=== PATIENT | female | born 1975 | race Caucasian/White ===

== ENCOUNTER 2017-05-23 17:51 | Emergency (ER) | payer BC ==
[2017-05-23 18:06] VITALS: BP 137/85
[2017-05-23] MEDS ORDERED: Dexamethasone 4 MG Tab PO ONE (18:49)
[2017-05-23] MEDS ORDERED: Amoxicillin 500 MG Cap PO ONE (18:49)
--- NOTE | 2017-05-23 19:06 | EDM.PDOC ---
ED HPI GENERAL MEDICAL PROBLEM - General Chief Complaint: ENT Problem Stated Complaint: SORE THROAT/BODY ACHES Time Seen by Provider: 05/23/17 18:33 Source of Information: Reports: Patient History Limitations: Reports: No Limitations - History of Present Illness INITIAL COMMENTS - FREE TEXT/NARRATIVE: 42-year-old female with chief complaint of sore throat. She's been ill for about a day. She has severe throat pain, worse with swallowing. No documented fever but she has shaking chills. No rhinorrhea. No cough. No chest pain. No nausea or vomiting. No rash. No ill contacts. 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 Faizan disease Hematologic History: Reports: Anemia Social & Family History - Family History Family Medical History: Noncontributory - Tobacco Use Smoking Status *Q: Current Every Day Smoker Years of Tobacco use: 10 Packs/Tins Daily: 0.5 Used Tobacco, but Quit: No Second Hand Smoke Exposure: No - Caffeine Use Caffeine Use: Reports: Soda - Alcohol Use Days Per Week of Alcohol Use: 0 - Recreational Drug Use Recreational Drug Use: No - Living Situation & Occupation Living situation: Reports: , with Spouse, with Family Occupation: Employed ED ROS ENT - Review of Systems Review Of Systems: See Below Constitutional: Reports: Fever, Chills, Malaise HEENT: Denies: Rhinitis Respiratory: Denies: Cough Cardiovascular: Denies: Chest Pain GI/Abdominal: Denies: Abdominal Pain Skin: Reports: No Symptoms Neurological: Reports: Headache ED EXAM, ENT - Physical Exam Exam: See Below Exam Limited By: No Limitations General Appearance: Alert, WD/WN, No Apparent Distress Eye Exam: Bilateral Eye: Normal Inspection Ears: Normal External Exam Nose: Normal Inspection, Normal Mucousa, No Blood Mouth/Throat: Pharyngeal Erythema, Tonsillar Erythema, Tonsillar Exudates, Tonsillar Swelling Head: Atraumatic, Normocephalic Neck: Normal Inspection, Supple, Lymphadenopathy (L), Lymphadenopathy (R) Respiratory/Chest: No Respiratory Distress, Lungs Clear, Normal Breath Sounds, No Accessory Muscle Use, Chest Non-Tender Cardiovascular: Normal Peripheral Pulses, Regular Rate, Rhythm, No Murmur GI/Abdominal: Soft, Non-Tender, No Distention. No: Rebound Back: Normal Inspection Extremities: Normal Inspection Neurological: Alert, Oriented, Normal Cognition, No Motor/Sensory Deficits Psychiatric: Normal Affect, Normal Mood Skin: Warm, Dry, Intact, Normal Color, No Rash Course - Vital Signs Last Recorded V/S: Last Vital Signs Temp 36.4 C 05/23/17 18:02 Pulse 104 H 05/23/17 18:02 Resp 17 05/23/17 18:02 BP 137/85 05/23/17 18:02 Pulse Ox 100 05/23/17 18:02 - Orders/Labs/Meds Meds: Medications Discontinued Medications Generic Name Dose Route Start Last Admin Trade Name Freq PRN Reason Stop Dose Admin Amoxicillin 500 mg 05/23/17 18:49 05/23/17 18:59 Amoxil PO 05/23/17 18:50 500 mg ONETIME ONE Administration Dexamethasone 10 mg 05/23/17 18:49 05/23/17 18:59 Dexamethasone PO 05/23/17 18:50 10 mg ONETIME ONE Administration Departure - Departure Time of Disposition: 19:04 Disposition: Home, Self-Care 01 Clinical Impression: Pharyngitis Qualifiers: Pharyngitis/tonsillitis etiology: unspecified etiology Qualified Code(s): J02.9 - Acute pharyngitis, unspecified - Discharge Information Prescriptions: Amoxicillin 500 mg PO TID #30 tab Ibuprofen 600 mg PO QID PRN #30 tablet PRN Reason: Pain Instructions: Pharyngitis, [id number] Referrals: PCP,None [Primary Care Provider] - Forms: ED Department Discharge Additional Instructions: 1. take amoxicillin as prescribed 2. take ibuprofen for pain. You may also take acetaminophen (Tylenol) in addition to ibuprofen, these medications worked in different ways and are cleared by your body in different ways and may provide you with better pain relief together. 3. Follow-up with your primary doctor as needed for further care.
== END 2017-05-23 19:12 | disposition home or self-care (01) ==
LOC: JD.ED 17:51
DX: J02.9 Acute pharyngitis, unspecified (principal); F17.210 Nicotine dependence, cigarettes, uncomplicated
CPT/HCPCS: 87077; 87081; 87430; 99283; A9270; J8540

== ENCOUNTER 2017-10-25 07:13 | Emergency (ER) | payer BC ==
[2017-10-25 07:23] VITALS: BP 130/68
[2017-10-25] MEDS ORDERED: Ibuprofen 600 MG Tab PO ONE (07:27)
[2017-10-25] MEDS ORDERED: Lidocaine 1% 10 ML MDV INJECT ONE (07:28)
[2017-10-25] MEDS ORDERED: Diphtheria,Pertussis(Acell),Tetanus Vaccine 0.5 ML SDV IM ONE (07:35)
--- NOTE | 2017-10-25 07:35 | EDM.PDOC ---
ED HPI GENERAL MEDICAL PROBLEM - General Chief Complaint: Bite:Animal, Insect Stated Complaint: CUT ABOVE UPPER LIP Time Seen by Provider: 10/25/17 07:28 Source of Information: Reports: Patient, Family (spouse) History Limitations: Reports: No Limitations - History of Present Illness INITIAL COMMENTS - FREE TEXT/NARRATIVE: 42-year-old female attends the ED this morning after suffering a jagged laceration to the right side of her face. States her dog jumped up on her bed this morning and unfortunately one of his front part talons punctured her right side of her face just inferior to her naris and lateral to the naris. This resulted in a stellate laceration that is through and through at point. She is not exactly sure when her last tetanus toxoid was. The dog just came in from outside. Injury occurred within the last half hour. She denies any other injuries. Wound is approximately 2 cm in length . 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: Other (see below) (None.) Lip Pain Score (Numeric/FACES): 6 - Related Data Allergies Allergy/AdvReac Type Severity Reaction Status Date / Time No Known Allergies Allergy Verified 10/25/17 07:18 Home Meds: Home Meds Amoxicillin/Clavulanate K [Augmentin 500-125 MG] 1 tab PO BID #10 tab 10/25/17 [ Rx] Past Medical History - Past Health History Medical/Surgical History: Denies Medical/Surgical History HEENT History: Reports: Other (See Below) Other HEENT History: strep infection "long time ago." 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 Faizan disease Hematologic History: Reports: Anemia Social & Family History - Family History Family Medical History: Noncontributory - Tobacco Use Smoking Status *Q: Current Every Day Smoker Years of Tobacco use: 20 Packs/Tins Daily: 0.5 Used Tobacco, but Quit: No Second Hand Smoke Exposure: No - Caffeine Use Caffeine Use: Reports: Soda - Alcohol Use Days Per Week of Alcohol Use: 0 - Recreational Drug Use Recreational Drug Use: No - Living Situation & Occupation Living situation: Reports: , with Spouse, with Family Occupation: Employed ED ROS GENERAL - Review of Systems Review Of Systems: See Below Constitutional: Reports: No Symptoms HEENT: Reports: Other Respiratory: Reports: No Symptoms Cardiovascular: Reports: No Symptoms Endocrine: Reports: No Symptoms GI/Abdominal: Reports: No Symptoms : Reports: No Symptoms Musculoskeletal: Reports: No Symptoms Skin: Reports: Other Neurological: Reports: No Symptoms (Facial laceration as described in history present illness.) Psychiatric: Reports: No Symptoms Hematologic/Lymphatic: Reports: No Symptoms Immunologic: Reports: No Symptoms ED EXAM, ANIMAL BITE - Physical Exam Exam: See Below Exam Limited By: No Limitations General Appearance: Alert, WD/WN, Mild Distress Eye Exam: Bilateral Eye: Normal Inspection Head: Facial Tenderness (Tenderness inferior lateral to the right naris. There is a 2 cm stellate laceration in this area that is through and through into the superior tissues of the face above the gingiva margin. On inspection anteriorly there is a small puncture wound only. This will not need to be repaired.) Neck: Normal Inspection, Supple, Non-Tender, Full Range of Motion Respiratory/Chest: No Respiratory Distress, Lungs Clear, Normal Breath Sounds, No Accessory Muscle Use ED ANIMAL BITE PROCEDURES - Laceration/Wound Repair Right Middle Face Lac/Wound Length In cm: 2.0 Appearance: Subcutaneous, Stellate Distal NVT: Neuro & Vascular Intact Anesthetic Type: Local Local Anesthesia - Lidocaine (Xylocaine): 1% Plain Local Anesthetic Volume: 2cc Skin Prep: Saline Closed With: Sutures Suture Size: other (5-0) # of Sutures: 3 Suture Type: Nylon, Interrupted, Simple Course - Vital Signs Last Recorded V/S: Last Vital Signs Temp 36.6 C 10/25/17 07:19 Pulse 98 10/25/17 07:19 Resp BP 130/68 10/25/17 07:19 Pulse Ox 97 10/25/17 07:19 - Orders/Labs/Meds Orders: Active Orders 24 hr Category Date Time Status Vaccines to be Administered [RC] PER UNIT ROUTINE Care 10/25/17 07:35 Active Meds: Medications Discontinued Medications Generic Name Dose Route Start Last Admin Trade Name Gio PRN Reason Stop Dose Admin Diphtheria/Tetanus/Acell Pertussis 0.5 ml 10/25/17 07:35 10/25/17 08:02 Adacel IM 10/25/17 07:36 0.5 ml .ONCE ONE Administration Ibuprofen 600 mg 10/25/17 07:27 10/25/17 07:32 Motrin PO 10/25/17 07:28 600 mg ONETIME ONE Administration Lidocaine HCl 10 ml 10/25/17 07:28 10/25/17 07:38 Xylocaine 1% INJECT 10/25/17 07:29 10 ml ONETIME ONE Administration - Radiology Interpretation Free Text/Narrative:: 42-year-old female presents to the ED with a stellate facial laceration inferior lateral to her right naris. This occurred when her dog jumped up on her bed this morning and inadvertently struck her in the face with his toenail. And a stellate laceration that is through and through and one small portion. The inside portion will not require suture repair. The laceration on the outer aspect of the face will require suture repair. Lidocaine 1% and 5-0 Ethilon. T gap will be updated since its unclear when her last tetanus toxoid was given. I will give her Motrin 600 mg by mouth for pain relief at this time. She'll be placed on Augmentin 500 mg twice daily for the next 5 days to prevent secondary wound infection. - Re-Assessments/Exams Free Text/Narrative Re-Assessment/Exam: 10/25/17 08:06 wound repaired by PA bandar Jaramillo. 3 sutures were placed. His need to be removed in 6-7 days time. Patient will apply topical antibiotic such as bacitracin or Polysporin to the wound once daily at bedtime after daily cleanse. Placed on Augmentin 500 mg twice a day for the next 5 days to prefer prevent secondary wound infection. T Dap was updated today. Departure - Departure Time of Disposition: 08:04 Disposition: Home, Self-Care 01 Condition: Fair Clinical Impression: Facial laceration Qualifiers: Encounter type: initial encounter Qualified Code(s): S01.81XA - Laceration without foreign body of other part of head, initial encounter - Discharge Information Prescriptions: Amoxicillin/Clavulanate K [Augmentin 500-125 MG] 1 tab PO BID #10 tab Referrals: PCP,Not In Area [Primary Care Provider] - Forms: ED Department Discharge Additional Instructions: Evaluation the emergency room this morning in regards to a stellate jagged laceration to the inferior lateral aspect of your right nose. This resulted from a dog toenail when the dog jumped up on the bed and landed on her face. Wound is 2 cm in length. It was cleansed and then sutured 3 with 5-0 Ethilon suture. Treatment at home is to daily cleanse the wound with soap and water. Showering is okay. Then apply topical antibiotic such as bacitracin or Polysporin to the wound once daily usually at bedtime. Sutures could be removed in 7 days time. Suggest oral antibiotic Augmentin 500 mg twice daily for the next 5 days to prevent secondary wound infection. Tetanus toxoid, diphtheria, and pertussis vaccination was updated today and her good for the next 10 years. Return to medical care if any signs of infection develop such as increasing redness swelling or obvious pus. - My Orders Last 24 Hours: My Active Orders 10/25/17 07:35 Vaccines to be Administered [RC] PER UNIT ROUTINE - Assessment/Plan Last 24 Hours: My Active Orders 10/25/17 07:35 Vaccines to be Administered [RC] PER UNIT ROUTINE
== END 2017-10-25 08:24 | disposition home or self-care (01) ==
LOC: JD.ED 07:13
DX: S01.81XA Laceration without foreign body of other part of head, initial encounter (principal); F17.210 Nicotine dependence, cigarettes, uncomplicated; Z23 Encounter for immunization; W54.8XXA Other contact with dog, initial encounter
CPT/HCPCS: 12011; 90471; 90715; 99284; A9270; 99283

== ENCOUNTER 2018-02-07 20:28 | Emergency (ER) | payer BC ==
[2018-02-07 20:45] VITALS: BP 152/81
[2018-02-07] MEDS ORDERED: Ketorolac 60 MG/2 ML SDV IM ONE (22:10)
[2018-02-07] MEDS ORDERED: Acetaminophen/HYDROcodone 325-5 MG Tab PO ONE (22:10)
[2018-02-07] MEDS ORDERED: Orphenadrine 100 MG Tab.ER PO STA (22:10)
--- NOTE | 2018-02-07 22:18 | EDM.PDOC ---
ED HPI GENERAL MEDICAL PROBLEM - General Chief Complaint: Back Pain or Injury Stated Complaint: LOWER BACK PAIN Time Seen by Provider: 02/07/18 21:50 Source of Information: Reports: Patient History Limitations: Reports: No Limitations - History of Present Illness INITIAL COMMENTS - FREE TEXT/NARRATIVE: 42-year-old female presents for evaluation and treatment of low back pain. Patient reports the back pain is more for the last 2 weeks. She has tried over- the-counter medications including ibuprofen and heat without any relief. Pain is primarily located on the left lower back. Radiates into her buttocks. No numbness or tingling in the leg. No fevers, chills, urinary incontinence or stool incontinence. 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 Patient reports that she had a sim instance about 3 years ago. Associated bulging disc in her resolved on its own. She does not have a primary care provider. 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 Faizan disease Hematologic History: Reports: Anemia Social & Family History - Family History Family Medical History: Noncontributory - Tobacco Use Smoking Status *Q: Current Every Day Smoker Years of Tobacco use: 10 Packs/Tins Daily: 0.5 - Caffeine Use Caffeine Use: Reports: Soda - Recreational Drug Use Recreational Drug Use: No - Living Situation & Occupation Living situation: Reports: , with Spouse, with Family Occupation: Employed ED ROS GENERAL - Review of Systems Review Of Systems: See Below Constitutional: Denies: Fever, Chills GI/Abdominal: Denies: Stool Incontinence : Denies: Incontinence Musculoskeletal: Reports: Back Pain (lower back with radiation into the left buttocks). Denies: Leg Pain Neurological: Denies: Numbness, Tingling ED EXAM,LOWER BACK PAIN/INJURY - Physical Exam Exam: See Below Exam Limited By: No Limitations General Appearance: Alert, WD/WN, Moderate Distress Ears: Normal External Exam Nose: Normal Inspection Throat/Mouth: Normal Inspection, Normal Lips, Normal Voice, No Airway Compromise Neck: Normal Inspection, Full Range of Motion Respiratory/Chest: No Respiratory Distress, Lungs Clear, Normal Breath Sounds Cardiovascular: Normal Peripheral Pulses, Regular Rate, Rhythm, No Murmur Back Exam: Normal Inspection, Other (left SI joint). No: Vertebral Tenderness Neurological: Alert, Normal Mood/Affect, Normal Dorsiflexion, Normal Plantar Flexion. No: Straight Leg Raise (L), Straight Leg Raise (R) Psychiatric: Normal Affect, Normal Mood Skin Exam: Warm, Dry, Normal Color Course - Vital Signs Last Recorded V/S: Last Vital Signs Temp 98.7 F 02/07/18 20:43 Pulse 90 02/07/18 20:43 Resp 18 02/07/18 20:43 BP 152/81 H 02/07/18 20:43 Pulse Ox 95 02/07/18 20:43 - Orders/Labs/Meds Meds: Medications Discontinued Medications Generic Name Dose Route Start Last Admin Trade Name Bartq PRN Reason Stop Dose Admin Hydrocodone Bitart/Acetaminophen 1 tab 02/07/18 22:10 02/07/18 22:23 Sycamore 325-5 Mg PO 02/07/18 22:11 1 tab ONETIME ONE Administration Ketorolac Tromethamine 60 mg 02/07/18 22:10 02/07/18 22:23 Toradol IM 02/07/18 22:11 60 mg ONETIME ONE Administration Orphenadrine Citrate 100 mg 02/07/18 22:10 02/07/18 22:23 Norflex PO 02/07/18 22:11 100 mg NOW STA Administration - Re-Assessments/Exams Free Text/Narrative Re-Assessment/Exam: 02/07/18 22:11 Discussed imaging with the patient. Without any obvious trauma any bony abnormalities is unlikely. Patient is agreeable to this and agrees to forego any imaging. Recommend symptomatic care. If not much better she may require an MRI or physical therapy in the near future. Will prescribe pain medication for a few days and muscle relaxers. Discharge instructions as documented. Departure - Departure Time of Disposition: 22:13 Disposition: Home, Self-Care 01 Condition: Fair Clinical Impression: SI (sacroiliac) joint inflammation, Low back pain - Discharge Information *PRESCRIPTION DRUG MONITORING PROGRAM REVIEWED*: No *COPY OF PRESCRIPTION DRUG MONITORING REPORT IN PATIENT JAIDEN: No Prescriptions: Acetaminophen/HYDROcodone [Sycamore 325-5 MG] 1 tab PO Q6H PRN #15 tablet PRN Reason: Pain Orphenadrine [Norflex] 100 mg PO BID PRN #20 tab.er PRN Reason: Muscle Spasm Instructions: Back Pain, Adult, [id number] Referrals: PCP,None [Primary Care Provider] - Ewa Blanton, HVAC DESIGN ENGINEER [Nurse Practitioner] - Forms: ED Department Discharge Additional Instructions: you were given medication that can affect your ability to drive and operate machinery. Do not drive or operate machinery within 10 hours of taking prescription narcotic medication. Norflex 1 tab twice a day as needed for muscle spasms. Norflex may make you sedated. Do not drive or operate machinery until you know how this medication will affect you. Take [id number] NSAIDs such as Aleve or ibuprofen per package instructions. No more 3200 mg of ibuprofen in 1 day. For pain not relieved by NSAIDs, Sycamore one tablet every 6 hours. Sycamore is habit- forming, take as little as needed to control your pain. Do not drive or operate machinery within 10 hours of taking Sycamore. Follow-up with family medicine if not much better within 1-[address] Verduzco or Ewa Blanton at the [facility]. Call [phone] to schedule with on of these providers. Recommend using ice or heat for additional pain relief. You may also try topical products such as icy hot or BenGay. Please return to the ER if your symptoms change or worsen.
== END 2018-02-07 22:28 | disposition home or self-care (01) ==
LOC: JD.ED 20:28
DX: M46.1 Sacroiliitis, not elsewhere classified (principal); F17.210 Nicotine dependence, cigarettes, uncomplicated
CPT/HCPCS: 96372; 99283; A9270; J1885

== ENCOUNTER 2018-10-17 00:22 | Emergency (ER) | payer BC ==
[2018-10-17 00:30] VITALS: BP 138/86
[2018-10-17] MEDS ORDERED: Ketorolac 10 MG Tab PO ONE (00:40)
[2018-10-17] MEDS ORDERED: Acetaminophen/oxyCODONE 325-5 MG Tab PO ONE (00:40)
--- NOTE | 2018-10-17 00:41 | EDM.PDOC ---
ED HPI GENERAL MEDICAL PROBLEM - General Chief Complaint: ENT Problem Stated Complaint: THROAT PAIN FEVER AND CHILLS Time Seen by Provider: 10/17/18 00:35 Source of Information: Reports: Patient History Limitations: Reports: No Limitations - History of Present Illness INITIAL COMMENTS - FREE TEXT/NARRATIVE: 43-year-old female presents to the ED with a very painful sore throat for the last 24 hours. Associated fever chills. She states it feels like she is swallowing razor blades. Has her tonsils. No one else she knows has a sore throat. Denies any sputum production or nasal congestion. Pain radiates up into the left ear with swallowing. Denies cough or sputum production. Second problem is pain in her left sacroiliac joint. She playing racquetball a week ago and since that time the joint is become very inflamed and making it very difficult to walk. Walking with a definitive limp. Onset: Sudden Onset Date: 10/16/18 Onset Time: 08:00 (Woke up with sore throat yesterday morning and is gradually worsened as the day has gone on.) Duration: Hour(s):, Constant, Getting Worse Location: Reports: Neck, Back (Diffuse throat pain a little worse on the left side as compared to the right.) Quality: Reports: Ache ( Low back pain and buttock pain i.e. distribution of the left sacroiliac joint.), Sharp (SI joint and swallowing at times), Stabbing , Throbbing Severity: Severe (Throat pain is rated as 8 out of 10) Improves with: Reports: None Worsens with: Reports: None Context: Denies: Activity, Exercise, Lifting, Sick Contact, Trauma, Other Associated Symptoms: Reports: Fever/Chills, Malaise. Denies: No Other Symptoms , Confusion, Chest Pain, Cough, cough w sputum, Diaphoresis, Headaches, Loss of Appetite, Nausea/Vomiting, Rash, Seizure, Shortness of Breath, Syncope Treatments RECOVERY COORDINATOR: Reports: NSAIDS Throat Pain Score (Numeric/FACES): 6 - Related Data Allergies Allergy/AdvReac Type Severity Reaction Status Date / Time No Known Allergies Allergy Verified 02/07/18 20:45 Home Meds: Home Meds Acetaminophen/HYDROcodone [Gage 325-5 MG] 1 tab PO Q6H PRN #15 tablet 02/07/18 [Rx] Orphenadrine [Norflex] 100 mg PO BID PRN #20 tab.er 02/07/18 [Rx] Amoxicillin/Clavulanate K [Augmentin 500-125 MG] 1 tab PO BID #14 tablet [Rx] predniSONE [Deltasone] 20 mg PO ASDIRECTED #18 tablet 10/17/18 [Rx] Past Medical History - Past Health History Medical/Surgical History: Denies Medical/Surgical History HEENT History: Reports: Other (See Below) Other HEENT History: strep infection "long time ago." 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 Faizan disease Hematologic History: Reports: Anemia Social & Family History - Family History Family Medical History: Noncontributory - Tobacco Use Smoking Status *Q: Current Every Day Smoker Years of Tobacco use: 12 Packs/Tins Daily: 1 - Caffeine Use Caffeine Use: Reports: Soda - Living Situation & Occupation Living situation: Reports: , with Spouse, with Family Occupation: Employed ED ROS ENT - Review of Systems Review Of Systems: See Below Constitutional: Reports: Fever, Chills, Malaise, Weakness, Decreased Appetite HEENT: Reports: Throat Pain (Severe little worse on the left side as compared to the right.) Respiratory: Reports: No Symptoms Cardiovascular: Reports: No Symptoms Endocrine: Reports: No Symptoms GI/Abdominal: Reports: No Symptoms : Reports: No Symptoms Musculoskeletal: Reports: Back Pain (Left sacroiliac joint pain) Skin: Reports: No Symptoms Neurological: Reports: No Symptoms Psychiatric: Reports: No Symptoms Hematologic/Lymphatic: Reports: No Symptoms Immunologic: Reports: No Symptoms ED EXAM, ENT - Physical Exam Exam: See Below Exam Limited By: No Limitations General Appearance: Alert, WD/WN, Moderate Distress, Other (Does feel warm to palpation. Much warmer than 37.1.) Eye Exam: Bilateral Eye: Normal Inspection Ears: Normal TMs Mouth/Throat: Pharyngeal Erythema, Tonsillar Erythema, Tonsillar Exudates (Mild on the left side), Tonsillar Swelling ( than the left side). No: Peritonsillar Mass, Trismus ( mild left side ), Uvular Deviation Head: Atraumatic, Normocephalic Neck: Normal Inspection, Supple, Non-Tender, Full Range of Motion, Lymphadenopathy (L). No: Lymphadenopathy (R) (Tenderness left submandibular gland) Respiratory/Chest: No Respiratory Distress, Lungs Clear, Normal Breath Sounds, No Accessory Muscle Use, Chest Non-Tender Cardiovascular: Normal Peripheral Pulses, Regular Rate, Rhythm, No Edema, No Gallop, No Murmur, No Rub Back: Other Neurological: Alert, Oriented (Marked tenderness to palpation throughout the left sacroiliac joint as compared to the right.), CN II-XII Intact, Normal Cognition. No: Normal Gait Psychiatric: Other (Warm to palpation) Skin: Warm, Dry, Intact, Normal Color, No Rash, Other Course - Vital Signs Text/Narrative:: 43-year-old female presents to the ED with acute onset of fever chills associated severe sore throat over the last 24 hours. Examination confirms early tonsillitis involving the left tonsil and diffuse pharyngitis. She is febrile to exam. Plan IM Rocephin 1 g to bring illness under control little faster. She will be placed on Augmentin 500 mg twice a day for the next 7 days to clear up infection. Second problem is left sacroiliac joint pain. Went to a program of exercises to try and reduce the pain and stretch out the SI joint. Will give her-2 Percocet tablets by mouth now for fever and pain relief and Toradol for 10 mg by mouth as well. She is already taking Motrin for SI joint pain. I will also place her on prednisone 20 mg twice daily for 6 days and then once in the morning for another 6 days to relieve pain and inflammation left sacroiliac joint Last Recorded V/S: Last Vital Signs Temp 37.1 C 10/17/18 00:26 Pulse 83 10/17/18 00:26 Resp 18 10/17/18 00:26 BP 138/86 10/17/18 00:26 Pulse Ox 95 10/17/18 00:26 - Orders/Labs/Meds Meds: Medications Discontinued Medications Generic Name Dose Route Start Last Admin Trade Name Freq PRN Reason Stop Dose Admin Ceftriaxone Sodium 1 gm 10/17/18 00:45 Rocephin IM Q24H LILIAN Ceftriaxone Sodium 1 gm/ 0 gm 10/17/18 00:44 10/17/18 00:51 Lidocaine HCl 2.1 ml IM 10/17/18 00:45 2.6 inj ONETIME ONE Administration Ketorolac Tromethamine 10 mg 10/17/18 00:40 10/17/18 00:51 Toradol PO 10/17/18 00:41 10 mg ONETIME ONE Administration Oxycodone/Acetaminophen 2 tab 10/17/18 00:40 10/17/18 00:51 Percocet 325-5 Mg PO 10/17/18 00:41 2 tab ONETIME ONE Administration Departure - Departure Time of Disposition: :05 Disposition: Home, Self-Care 01 Condition: Fair Clinical Impression: Tonsillitis, Sacroiliitis - Discharge Information *PRESCRIPTION DRUG MONITORING PROGRAM REVIEWED*: Not Applicable *COPY OF PRESCRIPTION DRUG MONITORING REPORT IN PATIENT JAIDEN: Not Applicable Prescriptions: Amoxicillin/Clavulanate K [Augmentin 500-125 MG] 1 tab PO BID #14 tablet predniSONE [Deltasone] 20 mg PO ASDIRECTED #18 tablet Instructions: Tonsillitis, [id number] Referrals: PCP,Not In Area [Primary Care Provider] - Forms: ED Department Discharge Additional Instructions: Evaluation the emergency room today in regards to development of a very sore throat over the last 24 hours with associated fever and chills. Examination reveals early left-sided tonsillitis and pharyngitis which means infection in the back of her throat. Treated in the ED with intramuscular injection of antibiotic Rocephin 1 g. He will need to start oral antibiotic Augmentin 500 mg twice daily starting at supper tonight. This is to take be taken twice daily for the next 7 days to clear up infection. Second problem identified was inflammation of the left sacroiliac joint. Suggest treatment with Deltasone 20 mg with breakfast and supper for 6 days then once in the morning only for another 6 days to relieve pain and inflammation in this joint. Should be taken with food. Continue Motrin 600 mg every 6 hours for fever and/or pain relief. Expect marked improvement in your throat pain over the next 24-36 hours.
[2018-10-17] MEDS ORDERED: cefTRIAXone 1 GM, Lidocaine 1% 2.1 ML IM ONE ×2 (00:44)
[2018-10-17] MEDS ORDERED: cefTRIAXone 1 GM Vial IM SCH (00:45)
== END 2018-10-17 01:10 | disposition home or self-care (01) ==
LOC: JD.ED 00:22
DX: J03.90 Acute tonsillitis, unspecified (principal); M46.1 Sacroiliitis, not elsewhere classified; F17.210 Nicotine dependence, cigarettes, uncomplicated; E05.90 Thyrotoxicosis, unspecified without thyrotoxic crisis or storm; Z79.899 Other long term (current) drug therapy
CPT/HCPCS: 96372; 99282; A9270; J0696; J2001; 99283

== ENCOUNTER 2021-01-13 02:00 | Emergency (ER) | payer BC, OTHER ==
[2021-01-13 02:16] VITALS: BP 159/87; PULSE 85
[2021-01-13] MEDS ORDERED: Nitrofurantoin Monohydrate/Macrocrystalline 100 MG Cap PO ONE (02:55)
--- NOTE | 2021-01-13 03:00 | EDM.PDOC ---
ED HPI GENERAL MEDICAL PROBLEM - General Chief Complaint: Genitourinary Problem Stated Complaint: UTI Time Seen by Provider: 01/13/21 02:49 Source of Information: Reports: Patient, RN Notes Reviewed - History of Present Illness INITIAL COMMENTS - FREE TEXT/NARRATIVE: 45 yr old female comes in with voiding dysuria, frequency and now "hematuria". Hx of UTI's. very mild L low back pain. No fever, nausea or vomiting. - Related Data Allergies Allergy/AdvReac Type Severity Reaction Status Date / Time sulfamethoxazole Allergy Vomiting Verified 01/13/21 02:14 [From Bactrim] trimethoprim [From Bactrim] Allergy Vomiting Verified 01/13/21 02:14 Home Meds: Home Meds Ibuprofen [Ibu] 600 mg PO ONCALL PRN 01/13/21 [History] Nitrofurantoin Monohyd/M-Cryst [Macrobid 100 mg Capsule] 100 mg PO Q12HR #10 capsule 01/13/21 [Rx] Past Medical History - Past Health History Medical/Surgical History: Denies Medical/Surgical History HEENT History: Reports: Other (See Below) Other HEENT History: strep infection "long time ago." Genitourinary History: Reports: Pyelonephritis 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 Faizan disease Hematologic History: Reports: Anemia Social & Family History - Family History Family Medical History: No Pertinent Family History - Tobacco Use Tobacco Use Status *Q: Unknown Ever Used Tobacco - Caffeine Use Caffeine Use: Reports: Soda - Living Situation & Occupation Living situation: Reports: , with Spouse, with Family Occupation: Employed ED ROS GENERAL - Review of Systems Review Of Systems: See Below Constitutional: Reports: Chills. Denies: Fever HEENT: Reports: No Symptoms Respiratory: Reports: No Symptoms Cardiovascular: Reports: No Symptoms GI/Abdominal: Denies: Nausea, Vomiting Skin: Reports: No Symptoms Neurological: Reports: No Symptoms ED EXAM, RENAL/ - Physical Exam Exam: See Below General Appearance: Alert, No Apparent Distress Respiratory/Chest: No Respiratory Distress, Lungs Clear Cardiovascular: Regular Rate, Rhythm GI/Abdominal: Non-Tender Back Exam: No: CVA Tenderness (L), CVA Tenderness (R) Extremities: Normal Inspection Neurological: Alert, Oriented, No Motor/Sensory Deficits Skin Exam: Warm, Dry, Normal Color Course - Vital Signs Last Recorded V/S: Last Vital Signs Temp 97.3 F 01/13/21 02:15 Pulse 85 01/13/21 02:15 Resp 16 01/13/21 02:15 BP 159/87 H 01/13/21 02:15 Pulse Ox 93 L 01/13/21 02:15 - Orders/Labs/Meds Orders: Active Orders 24 hr Category Date Time Status CULTURE URINE [MREF] Stat Lab 01/13/21 02:15 Received Labs: Laboratory Tests 01/13/21 Range/Units 02:15 Urine Color Yellow (Yellow) Urine Appearance Clear (Clear) Urine pH 5.5 (5.0-8.0) Ur Specific [place] > or = 1.030 (1.005-1.030) Urine Protein Negative (Negative) Urine Glucose (UA) Negative (Negative) Urine Ketones Negative (Negative) Urine Occult Blood 2+ H (Negative) Urine Nitrite Negative (Negative) Urine Bilirubin Negative (Negative) Urine Urobilinogen 0.2 (0.2-1.0) Ur Leukocyte Esterase Trace H (Negative) Urine RBC 0-5 (0-5) /hpf Urine WBC 10-20 H (0-5) /hpf Ur Squamous Epith Cells 10-20 H (0-5) /hpf Urine Bacteria Moderate H (FEW) /hpf Urine Mucus Many H (FEW) /hpf Meds: Medications Discontinued Medications Generic Name Dose Route Start Last Admin Trade Name Gio PRN Reason Stop Dose Admin Nitrofurantoin Macrocrystals 100 mg 01/13/21 02:55 01/13/21 03:07 Nitrofurantoin Monohydrate/Macrocrystalline 100 Mg Cap PO 01/13/21 02:56 100 mg ONETIME ONE Administration Departure - Departure Time of Disposition: 02:58 Disposition: Home, Self-Care 01 Clinical Impression: UTI, Urinary tract infectious disease - Discharge Information Prescriptions: Nitrofurantoin Monohyd/M-Cryst [Macrobid 100 mg Capsule] 100 mg PO Q12HR #10 capsule Instructions: Urinary Tract Infection, Adult, [id number] Referrals: Laura Alexander DIESEL TRACTOR ENGINE MECHANIC [Primary Care Provider] - Forms: ED Department Discharge Additional Instructions: macrobid 100 mg twice daily for 5 days or until gone. Prescription has been sent to [facility] at the [facility] [facility]. Drink plenty of water to maintain hydration. Follow up clinic a needed if symptoms not resolving as expected. Sepsis Event Note (ED) - Evaluation Sepsis Screening Result: No Definite Risk - Focused Exam Vital Signs: Vital Signs Temp Pulse Resp BP Pulse Ox 01/13/21 02:15 97.3 F 85 16 159/87 H 93 L - My Orders Last 24 Hours: My Active Orders 01/13/21 02:15 CULTURE URINE [MREF] Stat - Assessment/Plan Last 24 Hours: My Active Orders 01/13/21 02:15 CULTURE URINE [MREF] Stat
== END 2021-01-13 03:09 | disposition home or self-care (01) ==
LOC: JD.ED 02:00
DX: N39.0 Urinary tract infection, site not specified (principal); Z88.2 Allergy status to sulfonamides; Z88.1 Allergy status to other antibiotic agents
CPT/HCPCS: 81001; 87086; 87088; 87186; 99283; A9270

== ENCOUNTER 2022-01-20 22:21 | Emergency (ER) | payer BC, OTHER ==
[2022-01-20] MEDS ORDERED: Acetaminophen/HYDROcodone 325-5 MG Tab PO ONE (23:29)
[2022-01-20] MEDS ORDERED: Ondansetron 4 MG Tab.DIS PO ONE (23:30)
[2022-01-21 00:44] VITALS: BP 118/84; PULSE 84
== END 2022-01-21 00:44 | disposition home or self-care (01) ==
LOC: JD.ED 22:21
DX: U07.1 COVID-19 (principal); F17.210 Nicotine dependence, cigarettes, uncomplicated; Z88.2 Allergy status to sulfonamides; Z86.16 Personal history of COVID-19; Z20.822 Contact with and (suspected) exposure to COVID-19
CPT/HCPCS: 36415; 80053; 85007; 85027; 87635; 99284; A9270; U0002

== ENCOUNTER 2025-05-21 23:45 | Emergency (ER) | payer BC ==
[2025-05-22] MEDS: Acetaminophen/oxyCODONE 325-5 MG Tab PO ONE (00:47)
[2025-05-22 01:06] VITALS: BP 157/91; PULSE 71
== END 2025-05-22 01:01 | disposition home or self-care (01) ==
LOC: JD.ED 23:45
DX: K12.0 Recurrent oral aphthae (principal); L01.00 Impetigo, unspecified; L03.211 Cellulitis of face; Z88.2 Allergy status to sulfonamides; Z88.8 Allergy status to other drugs, medicaments and biological substances; Z79.899 Other long term (current) drug therapy; Z86.16 Personal history of COVID-19
CPT/HCPCS: 99283; A9270; 99284